=== PATIENT | female | born 1945 ===

== ENCOUNTER 2017-09-23 20:16 | Emergency (ER) | payer OTHER ==
[2017-09-23 20:29] VITALS: TEMP 97.6; O2SAT 99
--- NOTE | 2017-09-23 21:58 | ED PDOC ---
"HPI: Trauma/Fall - HPI Time Seen by Provider: 09/23/17 20:47 Chief Complaint (Nursing): Back Pain Chief Complaint (Provider): Back, Knee, and Head Pain s/p Fall History Per: Patient History/Exam Limitations: no limitations Onset/Duration Of Symptoms: Hrs Injury Occurred (Timing): Today @ (7:30pm) Additional History Per: Patient, EMS Additional Complaint(s): 71 yo female, with Diabetes Type II, presents to the ED complaining of low back pain, questionable loss of consciousness, headache, and left knee pain post fall , onset of roughly 3 hours ago. Patient tripped and fell outside of a restaurant on uneven sidewalk and was able to get up with the assistance of her son. Patient also reports loss of consciousness, but EMS denied LOC at the scene. Of note, she took Tylenol at 4pm, prior to her fall. She denies any anti- coagulant use, nausea, vomiting, chest pain, shortness of breath, or any changes in vision. Of note, patient states she is visit her son in [place] and is from [place]. PCP: Out of state, in [place] Past Medical History Reviewed: Historical Data, Nursing Documentation, Vital Signs Vital Signs: Last Vital Signs Temp 97.6 F 09/23/17 20:27 Pulse 83 09/23/17 20:27 Resp 16 09/23/17 20:27 BP 167/79 H 09/23/17 20:27 Pulse Ox 99 09/23/17 22:43 - Medical History PMH: Diabetes - Surgical History Surgical History: Other surgeries: Debridement of breast - Family History Family History: States: Unknown Family Hx - Social History Current smoker - smoking cessation education provided: No Ex-Smoker (has not smoked in the last 12 months): No Alcohol: None Drugs: Denies - Home Medications Home Medications: Ambulatory Orders Medication Instructions Recorded Acetaminophen [Acetaminophen 8 650 mg PO Q8 #14 tablet.er 09/23/17 Hour] - Allergies Allergies/Adverse Reactions: Allergies Allergy/AdvReac Type Severity Reaction Status Date / Time cetirizine [From Zyrtec] Allergy VOMITING Verified 09/23/17 20:24 diphenhydramine Allergy RASH Verified 09/23/17 20:24 [From Benadryl] Review of Systems ROS Statement: Except As Marked, All Systems Reviewed And Found Negative Constitutional: Positive for: Other (loc?) Eyes: Negative for: Vision Change Cardiovascular: Negative for: Chest Pain Respiratory: Negative for: Shortness of Breath Gastrointestinal: Negative for: Nausea, Vomiting Musculoskeletal: Positive for: Back Pain, Leg Pain (knee) Neurological: Positive for: Headache Physical Exam - Reviewed Nursing Documentation Reviewed: Yes Vital Signs Reviewed: Yes - Physical Exam Appears: Positive for: Well, Non-toxic, No Acute Distress Head Exam: Positive for: NORMOCEPHALIC. Negative for: ATRAUMATIC (tenderness to occipital scalp, no hematoma, no skin break, no palpable deformation) Skin: Positive for: Warm, Dry Eye Exam: Positive for: EOMI, PERRL. Negative for: Nystagmus ENT: Positive for: Pharynx Is (clear, uvula midline). Negative for: Nasal Congestion, Pharyngeal Erythema Neck: Positive for: Painless ROM, Supple Cardiovascular/Chest: Positive for: Regular Rate, Rhythm. Negative for: Murmur Respiratory: Positive for: Normal Breath Sounds. Negative for: Decreased Breath Sounds, Accessory Muscle Use, Respiratory Distress Gastrointestinal/Abdominal: Positive for: Soft. Negative for: Tenderness, Distended, Guarding, Rebound Back: Positive for: Vertebral Tenderness (of lumbar spine), Other (bilateral paralumbar tenderness). Negative for: L CVA Tenderness, R CVA Tenderness Extremity: Positive for: Tenderness (diffuse tenderness of left knee), Other ( decreased range of motion of left knee secondary to pain (-)skin break (-) ecchymosis). Negative for: Pedal Edema, Calf Tenderness, Deformity, Swelling Neurologic/Psych: Positive for: Alert, glove parts inspector II-XII (grossly intact), Oriented (x3 ), Cerebellar Tests (intact). Negative for: Motor/Sensory Deficits, Aphasia, Facial Droop - ECG O2 Sat by Pulse Oximetry: 99 (RA) Pulse Ox Interpretation: Normal Medical Decision Making Medical Decision Making: Time: --21:08 Impression: --Acute back and knee pain; closed head injury s/p fall Plan: --Head w/o contrast CT --CT lumbar spine w/o contrast --Knee x-ray 3 views --Tylenol 650mg PO Reassess --22:10 Knee XR: (-) fracture as read by Portia GONZALEZ Patient notified a Radiologist will review the ED reading if any change in treatment is needed we will contact her. DULCE MARIA encouraged Head CT reviewed, radiology report follows EXAM: CT Head Without Intravenous Contrast CLINICAL HISTORY: 71 years old, female; Injury or trauma; Fall; Initial encounter; Concussion / head injury; Consciousness not specified; Additional info: S/P fall TECHNIQUE: Axial computed tomography images of the head/brain without intravenous contrast. All CT scans at this facility use one or more dose reduction techniques, viz.: automated exposure control; ma/kV adjustment per patient size (including targeted exams where dose is matched to indication; i.e. head); or iterative reconstruction technique. COMPARISON: No relevant prior studies available. FINDINGS: Brain: Unremarkable. Ventricles: Unremarkable. Bones/joints: Unremarkable. No acute fracture. Soft tissues: Unremarkable. Sinuses: Unremarkable as visualized. Mastoid air cells: Unremarkable as visualized. IMPRESSION: No acute intracranial pathology or traumatic injury. Thank you for allowing us to participate in the care of your patient. Dictated and Authenticated by: Ginna Yusuf MD 09/23/2017 10:10 PM Eastern Time ([place] & [place]) -22:25 CT lumbar spine reviewed, radiology report follows EXAM: CT Lumbar Spine Without Intravenous Contrast CLINICAL HISTORY: 71 years old, female; Injury or trauma; Fall; Initial encounter; Concussion / head injury; Additional info: S/P fall TECHNIQUE: Axial computed tomography images of the lumbar spine without intravenous contrast. All CT scans at this facility use one or more dose reduction techniques, viz.: automated exposure control; ma/kV adjustment per patient size (including targeted exams where dose is matched to indication; i.e. head); or iterative reconstruction technique. COMPARISON: No relevant prior studies available. FINDINGS: Vertebrae: Diffuse osteoporosis. Multilevel facet joint arthropathy. No acute fracture. No lytic or blastic lesions. Discs/spinal canal/neural foramina: No acute findings. Soft tissues: Unremarkable. Vasculature: Atherosclerotic vascular disease. Kidneys and ureters: Right renal calculus. Reproductive: Calcified uterine fibroids. IMPRESSION: 1. No evidence of acute lumbar spine fracture 2. Remainder of findings as above. Thank you for allowing us to participate in the care of your patient. Dictated and Authenticated by: Flip Lopez MD 09/23/2017 10:24 PM Eastern Time ([place] & [place]) 2245 On re-evaluation, patient reports improvement of symptoms and resolution of headache with no dizziness. Patient remains AAOx3, in no acute distress. Lungs clear to auscultation, cardiac RRR, abdomen soft, non-tender, repeat neuro exam shows no focal findings. Ambulatory in ED with steady, unassisted gait. Lab results reviewed, Diagnostic results d/w the patient in great detail. Diagnosis of acute back pain, acute knee pain, closed head injury s/p fall d/w the patient. Based on history, exam and diagnostic results, plan will be for outpatient follow up. Patient instructed to follow-up with pmd / referral provided / the clinic in 1- 2 days without fail. Advised to take medication as prescribed. Return to the emergency room at any time for any new or worsening symptoms. Patient states she fully agrees with and understands discharge instructions. States that she agrees with the plan and disposition. Verbalized and repeated discharge instructions and plan. I have given the patient opportunity to ask any additional questions. Scribe Attestation: Documented by Gael Stein acting as a scribe for JULIAN Avalos. Provider Attestation: All medical record entries made by the Scribe were at my direction and personally dictated by me. I have reviewed the chart and agree that the record accurately reflects my personal performance of the history, physical exam, medical decision making, and the department course for this patient. I have also personally directed, reviewed, and agree with the discharge instructions and disposition. Disposition - Clinical Impression Clinical Impression: Back pain, Closed head injury, Headache, Knee pain, acute, Accidental fall on or from sidewalk curb - Patient ED Disposition Is Patient to be Admitted: No Counseled Patient/Family Regarding: Studies Performed, Diagnosis, Need For Followup, Rx Given - Disposition Disposition: Routine/Home Disposition Time: 22:40 Condition: STABLE Prescriptions: Acetaminophen [Acetaminophen 8 Hour] 650 mg PO Q8 #14 tablet.er Instructions: Low Back Pain (DC), Closed Head Injury (DC), Headache, Adult (DC ), Knee Pain Forms: [employer] (Azeri) Print Language: TRINIDADIAN - POA Present On Arrival: None"
[2017-09-24 02:22] VITALS: BP 128/69; PULSE 82; RESP 19
--- NOTE | 2017-09-24 09:24 | RAD ---
PROCEDURE: Left Knee Radiographs. HISTORY: Pain. COMPARISON: None. FINDINGS: BONES: No acute fracture. JOINTS: Mild tibial femoral compartmental narrowing. JOINT EFFUSION: None. OTHER FINDINGS: Arterial calcifications. IMPRESSION: No demonstrated fracture or dislocation. Mild degenerative changes.
--- NOTE | 2017-09-24 09:26 | CT ---
PROCEDURE: CT HEAD WITHOUT CONTRAST. HISTORY: s/p fall COMPARISON: None available. TECHNIQUE: Axial computed tomography images were obtained through the head/brain without intravenous contrast. Radiation dose: Total exam DLP = 689.3 mGy-cm. This CT exam was performed using one or more of the following dose reduction techniques: Automated exposure control, adjustment of the mA and/or kV according to patient size, and/or use of iterative reconstruction technique. FINDINGS: HEMORRHAGE: No intracranial hemorrhage. BRAIN: No mass effect or edema. Mild atrophy. Mild chronic microvascular ischemic changes. Left basal ganglia and external capsule lacunar infarctions. VENTRICLES: Unremarkable. No hydrocephalus. CALVARIUM: Unremarkable. PARANASAL SINUSES: Left maxillary sinus opacification. MASTOID AIR CELLS: Unremarkable as visualized. No inflammatory changes. OTHER FINDINGS: None. IMPRESSION: No intracranial pathology. Left maxillary sinus disease.
--- NOTE | 2017-09-24 11:21 | CT ---
PROCEDURE: CT Lumbar Spine without contrast HISTORY: s/p fall COMPARISON: None. TECHNIQUE: Axial computed tomography images were obtained of the lumbar spine without the use of intravenous contrast. Coronal and sagittal reformatted images were created and reviewed. Radiation dose: Total exam DLP = 368.1 mGy-cm. This CT exam was performed using one or more of the following dose reduction techniques: Automated exposure control, adjustment of the mA and/or kV according to patient size, and/or use of iterative reconstruction technique. FINDINGS: VERTEBRAE: Diffuse osteoporosis. Multilevel facet joint arthropathy. No acute fracture. Normal alignment. DISCS/SPINAL CANAL/NEURAL FORAMINA: No acute findings. PARASPINAL SOFT TISSUES: Unremarkable. OTHER FINDINGS: Calcific atherosclerosis. Calcified uterine fibroids. IMPRESSION: No acute fracture.
== END 2017-09-23 23:02 | disposition home or self-care (01) ==
LOC: H.ER 20:16
DX: S09.90XA Unspecified injury of head, initial encounter (principal); M54.9 Dorsalgia, unspecified; M25.562 Pain in left knee; W10.1XXS Fall (on)(from) sidewalk curb, sequela; W19.XXXA Unspecified fall, initial encounter; E11.9 Type 2 diabetes mellitus without complications